=== PATIENT | female | born 2000 | race Caucasian/White ===

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

== ENCOUNTER 2020-08-20 13:31 | Emergency (ER) | payer OTHER ==
[~2020-08-20] VITALS: Ht 154.9 cm; Wt 83.9 kg
[2020-08-20 13:45] VITALS: BP 136/80
[2020-08-21] MEDS ORDERED: IBUPROFEN IB200 M1 PO (13:00)
[2020-08-21] MEDS ORDERED: Percocet 325 MG1 TAB PO (13:01)
== END 2020-08-20 16:44 | disposition home or self-care (01) ==
LOC: ED 13:31
DX: S52.611A Displaced fracture of right ulna styloid process, initial encounter for closed fracture (principal); S52.501A Unspecified fracture of the lower end of right radius, initial encounter for closed fracture; S52.602A Unspecified fracture of lower end of left ulna, initial encounter for closed fracture; Z79.899 Other long term (current) drug therapy; V47.5XXA Car driver injured in collision with fixed or stationary object in traffic accident, initial encounter; Y93.89 Activity, other specified; Y92.89 Other specified places as the place of occurrence of the external cause; Y99.8 Other external cause status

== ENCOUNTER → 2020-08-21 | Outpatient (CLI) | payer OTHER ==
[~2020-08-21] MED LIST changes: +IBUPROFEN IB200 M1 PO; +Percocet 325 MG1 TAB PO
== END | disposition home or self-care (01) ==
LOC: RAD 10:19
PROVIDERS: ATTEND Orthopaedic Surgery
DX: S52.502A Unspecified fracture of the lower end of left radius, initial encounter for closed fracture (principal); S52.501A Unspecified fracture of the lower end of right radius, initial encounter for closed fracture; S62.102A Fracture of unspecified carpal bone, left wrist, initial encounter for closed fracture; S62.101A Fracture of unspecified carpal bone, right wrist, initial encounter for closed fracture; X58.XXXA Exposure to other specified factors, initial encounter; Y93.89 Activity, other specified; Y92.89 Other specified places as the place of occurrence of the external cause; Y99.8 Other external cause status

== ENCOUNTER → 2020-08-22 | Day surgery (SDC) | payer OTHER ==
[2020-08-22] VITALS (10 sets, daily range): BP systolic 126–143; BP diastolic 61–84
[~2020-08-22] VITALS: Ht 160 cm; Wt 94.3 kg
== END ==
LOC: SDC 08-21 12:30
PROVIDERS: ATTEND Orthopaedic Surgery
DX: S52.515A Nondisplaced fracture of left radial styloid process, initial encounter for closed fracture (principal); S52.571A Other intraarticular fracture of lower end of right radius, initial encounter for closed fracture; S52.615A Nondisplaced fracture of left ulna styloid process, initial encounter for closed fracture; F90.9 Attention-deficit hyperactivity disorder, unspecified type; F41.9 Anxiety disorder, unspecified; F32.9 Major depressive disorder, single episode, unspecified; F17.210 Nicotine dependence, cigarettes, uncomplicated; V49.9XXA Car occupant (driver) (passenger) injured in unspecified traffic accident, initial encounter; Y93.89 Activity, other specified; Y92.89 Other specified places as the place of occurrence of the external cause; Y99.8 Other external cause status

== ENCOUNTER → 2020-09-06 | Outpatient (CLI) | payer OTHER | END | disposition home or self-care (01) | LOC: ORTHO 08:02 | PROVIDERS: ATTEND Orthopaedic Surgery | DX: S52.571D Other intraarticular fracture of lower end of right radius, subsequent encounter for closed fracture with routine healing (principal); S52.515D Nondisplaced fracture of left radial styloid process, subsequent encounter for closed fracture with routine healing; S52.615D Nondisplaced fracture of left ulna styloid process, subsequent encounter for closed fracture with routine healing; X58.XXXD Exposure to other specified factors, subsequent encounter ==

== ENCOUNTER → 2020-09-20 | Outpatient (CLI) | payer OTHER | END | disposition home or self-care (01) | LOC: ORTHO 02:53 | PROVIDERS: ATTEND Orthopaedic Surgery | DX: S52.571D Other intraarticular fracture of lower end of right radius, subsequent encounter for closed fracture with routine healing (principal); S52.515D Nondisplaced fracture of left radial styloid process, subsequent encounter for closed fracture with routine healing; S52.615D Nondisplaced fracture of left ulna styloid process, subsequent encounter for closed fracture with routine healing; X58.XXXD Exposure to other specified factors, subsequent encounter ==

== ENCOUNTER → 2020-10-04 | Outpatient (CLI) | payer OTHER | END | disposition home or self-care (01) | LOC: ORTHO 00:23 | PROVIDERS: ATTEND Orthopaedic Surgery | DX: S52.571D Other intraarticular fracture of lower end of right radius, subsequent encounter for closed fracture with routine healing (principal); X58.XXXD Exposure to other specified factors, subsequent encounter ==

== ENCOUNTER → 2020-11-15 | Outpatient (CLI) | payer OTHER | END | disposition home or self-care (01) | LOC: ORTHO 01:38 | PROVIDERS: ATTEND Orthopaedic Surgery | DX: S52.571D Other intraarticular fracture of lower end of right radius, subsequent encounter for closed fracture with routine healing (principal); M19.031 Primary osteoarthritis, right wrist; X58.XXXD Exposure to other specified factors, subsequent encounter ==

== ENCOUNTER → 2021-09-26 | Outpatient (CLI) | payer OTHER | END | disposition home or self-care (01) | LOC: RAD 12:46 | PROVIDERS: ATTEND Nurse Practitioner Family | DX: M25.511 Pain in right shoulder (principal) ==

== ENCOUNTER 2022-02-08 14:16 | Emergency (ER) | payer OTHER ==
[~2022-02-08] VITALS: Ht 154.9 cm; Wt 90.7 kg
[2022-02-08 14:20] VITALS: BP 131/70
[2022-02-08] MEDS ORDERED: ONDANSETRON4 MG SL (15:42)
[2022-02-08] MEDS ORDERED: BENZONATATE100 M1 PO (15:42)
== END 2022-02-08 15:54 | disposition home or self-care (01) ==
LOC: ED 14:16
DX: B34.9 Viral infection, unspecified (principal); Z20.822 Contact with and (suspected) exposure to COVID-19; Z90.89 Acquired absence of other organs; F17.200 Nicotine dependence, unspecified, uncomplicated

== ENCOUNTER 2022-05-19 23:25 | Emergency (ER) | payer OTHER ==
[~2022-05-19] VITALS: Ht 154.9 cm; Wt 77.1 kg
[~2022-05-19 23:25] MED LIST changes: +BENZONATATE100 M1 PO; +ONDANSETRON4 MG SL
[2022-05-20 00:22] VITALS: BP 124/82
[2022-05-20] MEDS ORDERED: PENICILLIN VK500 MG PO (00:46)
== END 2022-05-20 01:02 | disposition home or self-care (01) ==
LOC: ED 23:25
DX: K02.9 Dental caries, unspecified (principal); Z88.6 Allergy status to analgesic agent

== ENCOUNTER 2023-06-14 18:28 | Emergency (ER) | payer SELFPAY ==
[~2023-06-14] VITALS: Ht 154.9 cm; Wt 81.6 kg
[~2023-06-14 18:28] MED LIST changes: +PENICILLIN VK500 MG PO
[2023-06-14 20:07] VITALS: BP 134/60
== END 2023-06-14 22:38 | disposition home or self-care (01) ==
LOC: ED 18:28
DX: B34.9 Viral infection, unspecified (principal); Z20.822 Contact with and (suspected) exposure to COVID-19; F90.9 Attention-deficit hyperactivity disorder, unspecified type; Z88.8 Allergy status to other drugs, medicaments and biological substances; Z90.89 Acquired absence of other organs